=== PATIENT | male | born 1975 | race African-American/Black ===

== ENCOUNTER 2021-03-16 20:59 | Emergency (ER) | payer BC ==
[2021-03-16] MEDS ORDERED: Dexamethasone 10 MG/ML VIAL ONE (22:36)
[2021-03-16] MEDS ORDERED: diphenhydrAMINE 50 MG/ML VIAL ONE (22:37)
== END 2021-03-17 00:18 | disposition home or self-care (01) ==
LOC: CSHERS 20:59
DX: T78.3XXA Angioneurotic edema, initial encounter (principal); I10 Essential (primary) hypertension; M10.9 Gout, unspecified; Z79.899 Other long term (current) drug therapy
CPT/HCPCS: 96374; 96375; J1100; J1200